=== PATIENT | male | born 1950 | race African-American/Black ===

== ENCOUNTER 2020-07-29 02:44 | Emergency (ER) | payer OTHER | END 2020-07-29 04:41 | LOC: NAV ERS 02:44 | DX: E11.649 Type 2 diabetes mellitus with hypoglycemia without coma (principal); E78.5 Hyperlipidemia, unspecified; G20 Parkinson's disease; I10 Essential (primary) hypertension; Z86.73 Personal history of transient ischemic attack (TIA), and cerebral infarction without residual deficits; Z79.899 Other long term (current) drug therapy; Z79.4 Long term (current) use of insulin | CPT/HCPCS: 36416; 99285 ==